=== PATIENT | female | born 1965 | race Caucasian/White ===

== ENCOUNTER 2021-08-11 00:09 | Emergency (ER) | payer BC, OTHER, SELFPAY ==
--- NOTE | 2021-08-11 00:10 | PC.NURSE ---
NO NEED FOR VISUAL ACUITY PER DR QUEZADA.
[2021-08-11 00:20] VITALS: BP 176/78; PULSE 56; RESP 18; TEMP 36.8; O2SAT 99; BMI 25.3
[2021-08-11] MEDS: Tetracaine HCl/PF 0.5% Oph Sol 4 ML DROPS 3 DROP EYE-RIGHT (00:29)
[2021-08-11] MEDS: Fluorescein Sodium STRIP 1 STRIP EYE-RIGHT (00:30)
--- NOTE | 2021-08-11 00:36 | ED.EYEPROB ---
HPI - Eye Problem General Chief complaint: Eye Problems Stated complaint: eye pain Time Seen by Provider: 08/11/21 00:22 Source: patient Mode of arrival: ambulatory Limitations: no limitations History of Present Illness HPI Narrative: She poked herself by cardboard at work in 2 right eye complaining of blurred vision with watery eyes no loss of vision no scotomas no loss of visual field no other injuries Related Data Previous Rx's Medication Instructions Recorded ketorolac 0.5 % eye drops (Acular) 2 drp OPHTHALMIC-RIGHT Q6-8H PRN 08/11/21 #3 ml tobramycin 0.3 % eye drops 1 drp OPHTHALMIC-RIGHT Q4H #5 ml 08/11/21 Allergies Allergy/AdvReac Type Severity Reaction Status Date / Time No Known Allergies Allergy Verified 08/11/21 00:28 Review of Systems Review of Systems: Yes all other systems are reviewed and are negative Eyes: Eyes: Reports photophobia PMFSH Past Medical History Medical History No known health problems Social History Social History Advance Directives: No Advance Directives Information Provided: No Patient : No Physical Exam Vital Signs: Vital Signs: Last Vital Signs Temp 98.2 F 08/11/21 00:20 Pulse 56 08/11/21 00:20 Resp 18 08/11/21 00:20 BP 176/78 H 08/11/21 00:20 Pulse Ox 99 08/11/21 00:20 Body Mass Index 25.3 Const: General: comfortable and no acute distress HENMT: Head: Yes normocephalic and Yes atraumatic Eyes: Periorbital: periorbital findings normal Eyelids: Yes eyelids normal Conjunctivae: conjunctivae normal Sclerae: sclerae normal Corneas: fluorescein used Pupils: Equal, round and reactive pupils present EOM: EOMs intact bilaterally Direct Ophthalmoscopy: fundi normal bilaterally, anterior chamber normal and photophobia Eyes/upper lids images: 1. Superficial abrasion, anterior chamber normal posterior chamber normal fundus negative Resp: Effort & Inspection: normal respiratory effort Neuro: Cranial nerves: Yes Equal, round and reactive pupils present Discharge Plan Discharge Clinical Impression: Corneal abrasion Qualifiers: Encounter type: initial encounter Laterality: right Qualified Code(s): S05.01XA - Injury of conjunctiva and corneal abrasion without foreign body, right eye, initial encounter Patient Disposition: Home, Self-Care Instructions: Corneal Abrasion (ED) Additional Instructions: Care as advised Use antibiotic eyedrop every 4-6 hours until heals complete Prescriptions: New ketorolac [Acular] 0.5 % drops 2 drp ophthalmic-Right Q6-8H PRN (Reason: pain) Qty: 3 RF: 0 tobramycin 0.3 % drops 1 drp ophthalmic-Right Q4H Qty: 5 RF: 0
[2021-08-11] MEDS: Tobramycin Sulfate 0.3% Sol Op 5 ML BTL 2 DROP EYE-RIGHT (00:41)
== END 2021-08-11 00:51 | disposition home or self-care (01) ==
PROVIDERS: Emergency Provider Internal Medicine; PCP Nurse Practitioner Family
DX: S05.01XA Injury of conjunctiva and corneal abrasion without foreign body, right eye, initial encounter (principal); H57.11 Ocular pain, right eye; W26.9XXA Contact with unspecified sharp object(s), initial encounter; Y93.9 Activity, unspecified; Y92.9 Unspecified place or not applicable; Y99.0 Civilian activity done for income or pay; Z79.899 Other long term (current) drug therapy
CPT/HCPCS: 99283

== ENCOUNTER 2022-03-25 07:52 | Outpatient (REF) | payer BC, SELFPAY ==
--- NOTE | ~2022-03-25 | XR_ITS ---
EXAMINATION: XR WRIST, LEFT CLINICAL INFORMATION: M25.532 - Pain in left wrist COMPARISON: None TECHNIQUE: Left wrist is imaged in 3 views. FINDINGS: There is a comminuted fracture with intra-articular extension involving the distal radius there is slight radial displacement distal fragments. There is also nondisplaced fracture base ulnar styloid. Ulnar variance is within neutral. The carpal bones appear intact. No dislocation or destructive process. XR/XR wrist LT min 3V IMPRESSION: -Comminuted intra-articular fracture distal radius. -Nondisplaced fracture base ulnar styloid.
== END 2022-03-25 07:53 | disposition home or self-care (01) ==
LOC: HO.HOSX 07:52
PROVIDERS: Visit Provider Physician Assistant
DX: M25.532 Pain in left wrist (principal)
CPT/HCPCS: 73110

== ENCOUNTER 2022-03-28 08:27 | Day surgery (SDC) | payer BC, SELFPAY ==
--- NOTE | 2022-03-27 09:25 | HO.ANESPROP2 ---
Documented by User: Veda Cole NP 03/27/22 09:25 HPI - Anesthesia Eval Consult details Narrative: 56yo F for Left Radius Distal Fracture ORIF PMFSH Active Problems Active Problems: All Active Problems (Updated 03/25/22 @ 17:56 by Dada Connelly PA-C) Nondisplaced fracture of left ulna styloid process, initial encounter for closed fracture (Acute) Distal radius fracture, left (Acute) Past Medical History Medical History No known health problems Social History Social History (Updated 03/25/22 @ 09:47 by AMARI Robert) Patient Tobacco Use Status: Never used Tobacco Use of substances other than those prescribed or required for medical reasons: No Are you DNR?: No Advance Directives: No Advance Directives Information Provided: Yes Current occupation: [employer] hand Meds Allergies Allergy/AdvReac Type Severity Reaction Status Date / Time No Known Allergies Allergy Verified 08/11/21 00:28 Home Medications Medication Instructions Recorded Confirmed Last Taken Type hydrocodone 5 mg-acetaminophen 325 1 tab PO TID PRN 03/25/22 Unknown History mg tablet naproxen 500 mg tablet 500 mg PO BID 03/25/22 Unknown History Exam Exam Date and Time: March 27, [id number] Assessment and Plan Assessment Anesthesia Assessment: Chart Reviewed Documented by User: Matthew Gonzalez MD 03/28/22 12:41 PMFSH Past Medical History Medical History No known health problems Family History Family history of problems with anesthesia: No Surgical History History of Problems with Anesthesia: No Social History Social History (Updated 03/25/22 @ 09:47 by AMARI Robert) Patient Tobacco Use Status: Never used Tobacco Use of substances other than those prescribed or required for medical reasons: No Are you DNR?: No Advance Directives: No Advance Directives Information Provided: Yes Current occupation: [employer] Meds Allergies Allergy/AdvReac Type Severity Reaction Status Date / Time No Known Allergies Allergy Verified 08/11/21 00:28 Home Medications Medication Instructions Recorded Confirmed Last Taken Type hydrocodone 5 mg-acetaminophen 325 1 tab PO TID PRN 03/25/22 Unknown History mg tablet naproxen 500 mg tablet 500 mg PO BID 03/25/22 Unknown History Exam Airway Mallampati Class: II TM Dist: >3cm Neck ROM: Full Denture: Upper Loose/Missing/Broken Teeth: Yes Assessment and Plan Assessment Anesthesia Assessment: Anesthesia Plan Discussed Final Anesthetic Review Family History of Problems with Anesthesia: No History of Problems with Anesthesia: No NPO: Yes ASA Class: I Final Preanesthetic Review: No Changes in Pt Med Stat, Meds/Allgs Chart Reviewed, Consent Obtained/Reviewed and Anes Risks/Benef Reviewed Patient Risk: Low Procedure Risk: Low Anesthetic Plan Anesthetic Plan: GA and Regional Block Disposition: Standard PACU
[2022-03-28] VITALS (7 sets, daily range): BP systolic 114–153; BP diastolic 62–85; PULSE 65–75; RESP 14–18; TEMP 35.8–36.5; O2SAT 95–98; BMI 25.0
--- NOTE | ~2022-03-28 | FL_ITS ---
EXAMINATION: XR FLUOROSCOPY WITH IMAGES CLINICAL INFORMATION: Open reduction and internal fixation of left distal radial fracture. COMPARISON: 03/25/2022 TECHNIQUE: FLUOROSCOPY PERFORMED BY: Yuliana Shen . FLUOROSCOPY TIME: 30.04 seconds. DAP: 0.0546 Gy-cm2 FLUOROSCOPIC IMAGES: 3 FINDINGS: Provided C-arm images demonstrate placement of sideplate and screws for fixation of distal left radial fracture. FL/FL guidance in OR IMPRESSION: Intraoperative fluoroscopy for orthopedic procedure.
[2022-03-28] MEDS: Lactated Ringers 1,000 ML 100 ML IVCONT (08:56)
--- NOTE | 2022-03-28 09:18 | P.OP_ITS ---
Operative Note Operative Note Date of Service: 03/28/22 Narrative: Operative Note Narrative: Preop diagnosis: 1. Left Distal radius fracture , comminuted intra-articular volar Bean variant Postop diagnosis: Same Procedure: 1. Distal radius fracture open reduction internal fixation, Three-part intra- articular Surgeon: Yuliana Shen MD Anesthesia: General anesthesia plus regional block Findings: left volar Bean intra-articular distal radius fracture Implants: A 5 hole Accu Med volar locking plate, with 5x 2.3 mm locking pegs/screws, and 4x 3.5 mm cortical screws Tourniquet time: 60 minutes EBL: 5.0 ml Specimen: None Drains: None Complications: None Disposition: Brought to the recovery room in stable condition Plan: Follow-up in 10-14 days for wound check, suture removal and postop radiographs The patient will be placed in either a short-arm cast or a volar wrist splint. Encouraged no lifting of anything heavier than a cell phone. Please encourage active and passive range of motion of the digits. Follow-up at 4-5 weeks postop for repeat radiographs. Indications: The patient is a 56 year old woman with a left volar Bean variant distal radius fracture . The risks and benefits of operative treatment, including but not limited to risk of damage to blood vessels, nerves, tendons, infection, recurrence, persistent pain or numbness, incomplete resolution of preoperative symptoms, or need for further surgery were discussed with the patient and they wished to proceed with surgery. Procedure: Once consent was obtained patient was brought back to the operating suite and placed in the operating table in a supine position. A regional block was performed by the anesthesia team. Perioperative antibiotics and anesthesia was administered by the anesthesia team. A tourniquet was applied to the proximal aspect of the left upper extremity and the limb was prepped and draped in a standard surgical fashion. The limb was elevated exsanguinated with Esmarch bandage and the tourniquet inflated to 250 mm of mercury for a total tourniquet time of 60 minutes. The FluoroScan was used throughout the case to assess our reduction, and facilitate implant placement. I made an 8 cm longitudinal incision over the distal aspect of the flexor carpi radialis tendon. The incision was made through the skin to the subcutaneous tissue using a 15. Blade. Then carefully dissected down to flexor carpi radialis tendon she tenotomy scissors. The FCR tendon sheath was then incised longitudinally using tenotomy scissors under direct visualization. The FCR tendon was then retracted ulnarly. I then made a longitudinal incision in the volar forearm fascia through the floor of FCR tendon sheath using tenotomy scissors under direct visualization. I identified the interval between the radial artery and the flexor tendons. This interval was developed further with my index finger, releasing some of the muscular fibers of the flexor pollicis longus. A dull weatlander retractor was then placed. I then created an ulnarly based flap of the pronator quadratus by releasing the radial and distal edges using a 15. Blade. A Watkins elevator was used to elevate the pronator quadratus from the volar surface of the distal radius. This then revealed to us our distal radius fracture. An open reduction was then performed on our distal radius fracture. it is an intra-articular volar Bean fracture with comminution of the volar cortex. I felt that a 3 hole plate was not going to be long enough, as the most distal the hole in the longitudinal limb of the plate would be passing through our fracture. We therefore used a standard 5 hole locking plate. After our open reduction of the comminuted pieces in the volar aspect of the fracture I then placed the 5 hole volar locking plate on the volar surface of the radius an use the plate to help buttress and reduce the articular surface to its more distal and dorsal anatomic position. This was a fixed 1st with a 3.5 mm cortical screw through the oval hole in the plate. This was done by drilling bicortically with a 2.8 mm drill bit, then securing the plate to the shaft the radius using the 3.5 mm cortical screw. Once satisfied with the position of this plate and our reduction , I then placed 5 2.3 mm locking screws/pegs distally. This was done by 1st drilling with a 1.8 mm drill bit, measuring with a depth gauge and placing the appropriate length screw or PEG. I then placed 3 more 3.5 mm cortical Screws proximally, in a similar fashion as to the original 3.5 mm cortical screw. Final radiographs were then obtained. The DRUJ was assessed and found to be stable on exam. I was satisfied with our reduction and placement of all implants. At this point the wound was irrigated with normal saline. The pronator quadratus was reduced back over the volar locking plate using some 3-0 Vicryl suture material. The tourniquet was then deflated and hemostasis was obtained with a brief period of local pressure and bipolar monopolar electrocautery. The subcutaneous layer was then reapproximated using some 4-0 Vicryl suture, and the skin edges were reapproximated using some 5 0 Prolene suture. The wound was then infiltrated with some 1% lidocaine with epinephrine postop pain control. A sterile dressing and a short dorsal splint allowing for active flexion and extension of the digits was applied. The patient appears to have tolerated the procedure well and with no complications. All digits were well vascularized conclusion of the case.
--- NOTE | 2022-03-28 11:05 | MHC.SHP ---
Pre-Procedural Eval Section A Date of Service: 03/28/22 The patient is an INPATIENT: No Changes since office visit: No Cold of Flu in the past 2 weeks, No New Medical Problems, No Changes in Medication and No Patient answered all questions The History & Physical has been completed within 30 days and I have reviewed it.: Yes Section B Chief Complaint: fx radius Allergies: Allergies Allergy/AdvReac Type Severity Reaction Status Date / Time No Known Allergies Allergy Verified 08/11/21 00:28 Plan I have reviewed the history and physical and performed a pertinent physical examination on my patient. No changes have occurred unless specified.
== END 2022-03-28 14:30 | disposition home or self-care (01) ==
PROVIDERS: PCP Nurse Practitioner Family; Visit Provider Orthopaedic Surgery
PROC: (CPT 25609; principal; 2022-03-28 10:20)
DX: S52.572A Other intraarticular fracture of lower end of left radius, initial encounter for closed fracture (principal); S52.615A Nondisplaced fracture of left ulna styloid process, initial encounter for closed fracture; V19.3XXA Pedal cyclist (driver) (passenger) injured in unspecified nontraffic accident, initial encounter; Y93.55 Activity, bike riding; Y92.9 Unspecified place or not applicable; Y99.8 Other external cause status
CPT/HCPCS: 25609; C1713; C1769; J0690; J1100; J2250; J2405; J2550; J2795; J3010

== ENCOUNTER 2022-04-10 08:14 | Outpatient (REF) | payer BC, SELFPAY ==
--- NOTE | ~2022-04-10 | XR_ITS ---
EXAMINATION: XR WRIST, LEFT CLINICAL INFORMATION: Fracture. COMPARISON: Previous x-ray March 2022 TECHNIQUE: PA, lateral, and oblique views of the left wrist. FINDINGS: There is a superior hardware with plate and screws in the left distal radius that appears unchanged. There is a comminuted fracture of the left distal radius with minimal dorsal displacement of fracture fragment. There is a nondisplaced ulnar styloid fracture. There is overlying soft tissue swelling. XR/XR wrist LT min 3V IMPRESSION: ORIF of left distal radius fracture.
== END 2022-04-10 08:15 | disposition home or self-care (01) ==
LOC: HO.HOSX 08:14
PROVIDERS: Visit Provider Orthopaedic Surgery
DX: M25.532 Pain in left wrist (principal)
CPT/HCPCS: 73110

== ENCOUNTER 2022-05-01 09:10 | Outpatient (REF) | payer BC, SELFPAY ==
--- NOTE | ~2022-05-01 | XR_ITS ---
EXAMINATION: XR WRIST, LEFT CLINICAL INFORMATION: Pain left wrist. COMPARISON: Left wrist 04/10/2022. TECHNIQUE: PA, lateral, and oblique views of the left wrist. FINDINGS: There is a volar plate and screws stabilizing distal radial fracture in alignment. There is nondisplaced ulnar styloid process fracture noted. Minimal soft tissue swelling is seen. XR/XR wrist LT min 3V IMPRESSION: Stabilized distal radial fracture with ventral plate and screws in alignment. No change in the nondisplaced ulnar styloid process fracture compared to 04/10/2022..
== END 2022-05-01 09:11 | disposition home or self-care (01) ==
LOC: HO.HOSX 09:10
PROVIDERS: Visit Provider Orthopaedic Surgery
DX: M25.532 Pain in left wrist (principal); S52.615A Nondisplaced fracture of left ulna styloid process, initial encounter for closed fracture; S52.502A Unspecified fracture of the lower end of left radius, initial encounter for closed fracture; X58.XXXA Exposure to other specified factors, initial encounter; Y93.9 Activity, unspecified; Y92.9 Unspecified place or not applicable; Y99.8 Other external cause status
CPT/HCPCS: 73110

== ENCOUNTER 2022-05-29 10:00 | Outpatient (RCR) | payer BC, SELFPAY ==
--- NOTE | 2022-05-14 13:46 | MHC.OT.OEV ---
[address] [phone] F: [phone] Occupational Therapy Evaluation Diagnosis: L wrist s/p ORIF for DR fracture Date of Onset: Date of Surgery: 05/01/22 Attending Provider: Yuliana Shen Prescribed Treatment: OT eval and treat MD Follow Up Appointment: History of Current Condition: Pt reports left wrist injury due to a fall. Surgical repair by Dr Shen. Pt is expected to RTW next week without restrictions. 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 Cycling occassionally Living Situation, Family and/or Social Support: Current Level of Function and Occupation Self Care, Employment, Leisure: Mild difficulty due to low strength with most homemaking tasks. Moderate difficulty with heavy work with her left dominant hand. Moderate difficulty with cutting hard foods Avoiding cycling Pt to RTW next week without restrictions Sleep: NA Driving: WNL Vision: Balance: Pain Assessment Pain Score: 4 Pain Scale Used: Numeric (0 - 10) Pain Location and Description: 4 left volar distal radius achy, burning occassionally Aggravating Factors: Lifting , gripping Alleviating Factors: Skin and Soft Tissue Assessment Skin and Soft Tissue: Contracture Comments: Long thin pink surgical scar, mod adherent Wrist stiff Nerve assessment Ulnar Nerve: WNL Median Nerve: WNL Radial Nerve: WNL Comments: MMT Sensory Assessment Temperature: Light Touch: WNL Proprioception: Vibration: Comments: Edema Assessment Upper Extremity: WNL Lower Extremity: Comments: Dexterity Assessment Dexterity: WNL Comments: Special Tests Comments: AROM(PROM) Strength Cervical Cervical Flexion: Cervical Extension: Cervical Lateral Flexion: Cervical Rotation: Comments: Shoulder Flexion: Extension: Abduction: Internal Rotation: External Rotation: Comments: Flexion: Extension: Abduction: Internal Rotation: External Rotation: Comments: Elbow Flexion: Extension: Pronation: Supination: Comments: Flexion: Extension: Pronation: Supination: Comments: Wrist Flexion: R 60 L 30 Extension: R 65 L 45 Ulnar Deviation: R 15 L 10 Radial Deviation: R 30 L 10 Comments: Flexion: Extension: Ulnar Deviation: Radial Deviation: Comments: Thumb Thumb CMC Flexion: Thumb MCP Flexion: Thumb IP Flexion: Radial Abduction: Palmar Abduction: Shiloh (Kapandji 0-10): Comments: WNl Digits Index MCP: PIP: DIP: Long MCP: PIP: DIP: Ring MCP: PIP: DIP: Small MCP: PIP: DIP: Comments: WNL Gross Grasp: R 50 lb L 30 lb Lateral Pinch: Two-Point Pinch: Three-Jaw Vishnu: Comments: Patient Education Primary Language: Serbian Dry Cleaner Helper Required: No Current Knowledge: Minimal, needs reinforcement Teaching Method: Demonstration Handouts Verbal Education Needs Identified on Evaluation: Exercise How did patient/family demonstrate learning? Patient demonstrates Patient verbalizes Barriers to Learning: None Readiness for Learning: Accepting Who was educated? 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 and would benefit from a short course of OT to maximize ROM and strength STG Duration: 3 wks Short Term Goals: Demo indep with HEP and scar management Inc left wrist ext to 60 deg Inc left wrist flex to 50 deg Left emt basic to 40 lb Dec wrist pain to occasional Quick DASH score to <15 pts LTG Duration: 3 wks Associate Java Developer Goals: Same as above Frequency and Duration: The patient will be seen 1x wk x 3 wks Treatment Plan: Therapeutic Exercise Therapeutic Activity Home Exercise Program Patient Education Electronically Signed By: Angélica Orona OT CHT CLT Reviewed/agree with student documentation: N/A Therapist: Please sign and return to therapist, Thank you for your referral.
--- NOTE | 2022-06-27 11:11 | MHC.OT.DC ---
[address] [phone] F: [phone] Occupational Therapy Discharge Note Provider: Yuliana Shen Diagnosis: L wrist s/p ORIF for DR fracture Date of Surgery: 05/01/22 Date of Evaluation: 05/14/22 Date of Discharge: 06/27/22 Treatments to Date: 1 Cancellations to Date: No Shows to Date: Discharge Status: Achieved Goals Improved Function Independent with HEP Discharge Summary: Good inc in ROM and activity tolerance with Pt return to work this week. She reports only mild difficulty with daily activities due to low left hand and wrist sthrength. She is stretching and using her 3 and 5 pound free wts at home. She expresses confidence in continuing to improve with her HEP Electronically Signed By: Angélica Orona OT CHT CLT Reviewed/agree with student documentation: N/A Therapist: Please Sign and return to therapist, thank you for your referral.
== END 2022-06-27 11:11 | disposition home or self-care (01) ==
LOC: HO.OT 10:00
PROVIDERS: Visit Provider Orthopaedic Surgery
DX: S52.615A Nondisplaced fracture of left ulna styloid process, initial encounter for closed fracture (principal); S52.502A Unspecified fracture of the lower end of left radius, initial encounter for closed fracture
CPT/HCPCS: 97110; 97165

== ENCOUNTER 2023-11-03 06:14 | Outpatient (REF) | payer BC, SELFPAY ==
--- NOTE | ~2023-11-03 | XR_ITS ---
EXAMINATION: XR SHOULDER, LEFT CLINICAL INFORMATION: Left shoulder pain. COMPARISON: Left shoulder radiographs of 08/09/2014. TECHNIQUE: 3 views of the left shoulder. FINDINGS: Mild degenerative changes in the acromioclavicular joint with joint space narrowing and hypertrophic change. Mild changes with hypertrophic change along the glenoid. Degenerative changes in the imaged upper thoracic spine. XR/XR shoulder LT min 2V IMPRESSION: Mild degenerative changes in the acromioclavicular and glenohumeral joints.
== END 2023-11-03 06:15 | disposition home or self-care (01) ==
LOC: HO.HOSX 06:14
PROVIDERS: Visit Provider Physician Assistant
DX: M75.22 Bicipital tendinitis, left shoulder (principal); M75.102 Unspecified rotator cuff tear or rupture of left shoulder, not specified as traumatic
CPT/HCPCS: 20610; 73030; J1040

== ENCOUNTER 2023-11-03 08:04 | Outpatient (AMB) | payer BC, SELFPAY ==
--- NOTE | 2023-11-03 08:16 | MHC.OFFVIS ---
Intake Intake Visit Reasons: Newprob- LT Shoulder pain Intake Note: Gisel is a 58 year old right hand dominant female who presents today for a evaluation for her left shoulder pain. Patient reports ongoing pain for a couple weeks. She states that her pain is on the anterior aspect of the shoulder and it radiates up her neck and down to her elbow. Patient tried taking alive to give her some relief. Allergies No Known Allergies Allergy (Verified 11/03/23 08:18) HPI Newprob- LT Shoulder pain HPI Details 58-year-old right hand dominant female who presents in the office today for an evaluation of left shoulder pain. The patient reports ongoing pain for a few weeks. She claims her pain is on the anterior aspect of the left shoulder and claims it radiates up to her neck and down to her elbow. She confirms the use of Aleve which gives her some relief. [facility] Medical History (Updated 11/03/23 @ 08:31 by Keshia Barrientos PA-C) No known health problems Surgical History (Updated 11/03/23 @ 08:20 by Wen Bond) History of surgery on right wrist Social History (Updated 11/03/23 @ 08:19 by Wen Bond) Alcohol intake: current Patient Tobacco Use Status: Never used Tobacco Current occupational status: employed Current occupation: [email or web address] hand Review of Systems Const All systems reviewed & are unremarkable except as noted in HPI and below Physical Exam Const General: cooperative, healthy appearing and no acute distress Resp Effort & Inspection: normal respiratory effort and able to speak in complete sentences Cardio Rate: regular rate Peripheral pulses: Peripheral pulses 2+ throughout GI Palpation (GI): Soft to palpation Skin Lesions: no lesions Rashes: no rashes Extrem Other: Left shoulder: Full shoulder ROM in all planes but is painful at the last 20 degrees of motion. Full external rotation without pain. Pain with cross-body reach. 3/5 strength with empty can. NVI. Assessment & Plan Assessment & Plan (1) Biceps tendinitis of left shoulder: Code(s): M75.22 - Bicipital tendinitis, left shoulder (2) Painful arc syndrome of left shoulder: Code(s): M75.102 - Unspecified rotator cuff tear or rupture of left shoulder, not specified as traumatic Plan Ms. Christine is a 58-year-old right hand dominant female who presents in the office today for an evaluation of left shoulder pain. The patient reports ongoing pain for a few weeks. She claims her pain is on the anterior aspect of the left shoulder and claims it radiates up to her neck and down to her elbow. She confirms the use of Aleve which gives her some relief. The patient was offered a cortisone injection in the left shoulder with 80 mg of DepoMedrol. The patient was explained the risk, benefits, and alternatives to receiving this injection. After receiving consent for the injection, the patient had the procedure done while in office today. The patient tolerated the procedure well with no complications. A referral was place for the patient to attend physical therapy, which she has agreed to attend. Follow up will be in 6 weeks,, or sooner if needed. X-rays of the left shoulder which were obtained while in the office today and were reviewed by me, Keshia Barrientos PA-C, revealed no acute fracture of dislocation. Orders: Orders PT Evaluation and Treatment Today M75.102 - Unspecified rotator cuff tear or rupture of left shoulder, not specified as traumatic, M75.22 - Bicipital tendinitis, left shoulder XR shoulder LT min 2V Today M25.519 - Pain in unspecified shoulder Patient Instructions: Scribed for Keshia Barrientos PA-C by Medina Verduzco medical lab specialist, on 11/03/2023 at 8:00 am, EST. Coding Level of Care Code Est Pt Level 4 (58610) Diagnoses Biceps tendinitis of left shoulder M75.22 Painful arc syndrome of left shoulder M75.102
== END 2023-11-03 08:58 | disposition home or self-care (01) ==
PROVIDERS: PCP Nurse Practitioner Family; Visit Provider Physician Assistant
DX: M75.22 Bicipital tendinitis, left shoulder (principal); M75.102 Unspecified rotator cuff tear or rupture of left shoulder, not specified as traumatic
CPT/HCPCS: 20610; 99214

== ENCOUNTER 2023-12-01 09:00 | Outpatient (RCR) | payer BC, SELFPAY ==
--- NOTE | 2023-11-11 11:07 | MHC.PT.EP ---
[facility] [place] Office [place] Office [address] [phone] F: [phone] F: [phone] F: [phone] F: [phone] Physical Therapy Plan of Care Date of Evaluation: 11/11/23 Date of Surgery: Diagnosis: L shoulder pain Assessment: Pt is a 58yo female who presents to PT for treatment of L shoulder pain, with signs of impingement and tendinitis. Skilled PT indicated to teach pt management techniques at home, daily stretching routine, promote periscap and RTC strength, normalize scapulohumeral rhythm and body mechanics to avoid re-injury. Pt in agreement with POC and is motivated to participate. Frequency and Duration: The patient will be seen 2x/week, x 4 weeks Short Term Goals: 1. In 2 weeks, patient will be able to maintain SRD during 10 reps shoulder exercise. 2. In 2 weeks, patient will be I with phase 1 exercises and stretches independently. 3. In 2 weeks, patient will be able to list L arm into scaption to 60 degrees without hiking or elevation of shoulder blade. Wink Cutter Operator Goals: 1. In 4 weeks, patient will demonstrate 5/5 L shoulder IR/ER and periscap all planes. 2. In 4 weeks, patient will be able to lift up 8# item with L UE from floor to counter height shelf without increased pain. 3. In 4 weeks, improve SPADI score by 20 points, indicating improved function and decreased pain. Treatment Plan: Modalities to reduce pain, spasms and effusion. Manual therapy to restore motion and function. Therapeutic exercise to improve strength and flexibility. Neuromuscular re-education for posture and balance. Therapeutic activities to return to functional activities of daily living. Electronically signed by: Maribel Rebollar PT, DPT Please sign and return to therapist. Thank you for your referral.
--- NOTE | 2024-05-05 12:12 | MHC.PT.DC ---
[facility] [place] Office [place] Office [place] Office [address] [phone] F: [phone] F: [phone] F: [phone] F: [phone] Physical Therapy Discharge Report Diagnosis: L shoulder pain Date of Surgery: Date of Evaluation: 11/11/23 Date of Discharge: 12/01/23 Treatments to Date: 6 Cancellations to Date: No Shows to Date: Discharge Status: Achieved Goals Improved Function Independent with HEP Discharge Summary: Pt was referred to skilled PT for L shoulder pain. Pt fully participated in PT and HEP. Pt has met LTG and is able to lift 8# weight from floor and lift to counter height with good body mechanics, keeping weight close to body. L shoulder IR/ER with good scapular stability noted during side lying and prone exercise. Pt in agreement with D/C to HEP at this time. Thank you for this referral. Electronically signed by: Maribel Rebollar PT, DPT Please sign and return to therapist. Thank you for your referral.
== END 2024-05-05 12:12 | disposition home or self-care (01) ==
LOC: HO.PT 09:00
PROVIDERS: PCP Nurse Practitioner Family; Visit Provider Physician Assistant
DX: M75.102 Unspecified rotator cuff tear or rupture of left shoulder, not specified as traumatic (principal); M75.22 Bicipital tendinitis, left shoulder
CPT/HCPCS: 97110; 97140; 97161

== ENCOUNTER 2023-12-09 08:07 | Outpatient (AMB) | payer BC, SELFPAY ==
--- NOTE | 2023-12-09 08:10 | MHC.OFFVIS ---
Intake Intake Visit Reasons: ov- left bicep tendinitis, last inj 11/03/23 Intake Note: Gisel is a 58 year old right hand dominant female who presents today for a follow up of her left bicep tendinitis, last inj 11/03/23. Patient reports she is doing much better, however when she is over working her left arm she can feel a bit sore. She states that PT went well and she was given at home exercises and she sees improvements. Allergies No Known Allergies Allergy (Verified 12/09/23 08:16) HPI ov- left bicep tendinitis, last inj 11/03/23 HPI Details 58-year-old right hand dominant female who presents in the office today for a follow up of left shoulder pain. I last saw the patient in the office on 11/03/2023 when she received a cortisone injection in the shoulder. A referral to physical therapy was also placed at this time. While in the office today the patient reports she is doing much better, however she is over working her left arm and states it feels a bit sore. She confirms attending physical therapy and states it went well. She was given a home exercise program and she has seen improvement. [facility] Medical History (Updated 11/03/23 @ 08:31 by Keshia Barrientos PA-C) No known health problems Surgical History (Updated 11/03/23 @ 08:20 by Wen Bond) History of surgery on right wrist Social History (Updated 11/03/23 @ 08:19 by Wen Bond) Alcohol intake: current Patient Tobacco Use Status: Never used Tobacco Current occupational status: employed Current occupation: [employer]- rt hand Review of Systems Const All systems reviewed & are unremarkable except as noted in HPI and below Physical Exam Const General: cooperative, healthy appearing and no acute distress Resp Effort & Inspection: normal respiratory effort and able to speak in complete sentences Cardio Rate: regular rate Peripheral pulses: Peripheral pulses 2+ throughout GI Palpation (GI): Soft to palpation Skin Lesions: no lesions Rashes: no rashes Extrem Other: Left shoulder: Normal to inspection. No ecchymosis, erythema, or edema. Full shoulder ROM in all planes. Negative cross-body reach. Negative empty can. Negative drop arm. NVI. Assessment & Plan Assessment & Plan (1) Biceps tendinitis of left shoulder: Code(s): M75.22 - Bicipital tendinitis, left shoulder (2) Painful arc syndrome of left shoulder: Code(s): M75.102 - Unspecified rotator cuff tear or rupture of left shoulder, not specified as traumatic Plan Ms. Christine is a 58-year-old right hand dominant female who presents in the office today for a follow up of left shoulder pain. I last saw the patient in the office on 11/03/2023 when she received a cortisone injection in the shoulder. A referral to physical therapy was also placed at this time. While in the office today the patient reports she is doing much better, however she is over working her left arm and states it feels a bit sore. She confirms attending physical therapy and states it went well. She was given a home exercise program and she has seen improvement. The patient reports occasionally she has pain between her shoulder blades, which is more muscular in nature. I did offer an appointment with Physiatry for further evaluation and treatment with possible trigger point injections. At this time the patient would like to defer. I have provided her with a card for Dr. Phipps. Follow up will be PRN, or sooner if needed. Patient Instructions: Scribed by Medina Verduzco medical billing clerk, for Keshia Barrientos PA-C on 12/09/2023 at 8:10 am, EST. Coding Level of Care Code Est Pt Level 3 (79944) Diagnoses Biceps tendinitis of left shoulder M75.22 Painful arc syndrome of left shoulder M75.102
== END 2023-12-09 08:21 | disposition home or self-care (01) ==
PROVIDERS: PCP Nurse Practitioner Family; Visit Provider Physician Assistant
DX: M75.22 Bicipital tendinitis, left shoulder (principal); M75.102 Unspecified rotator cuff tear or rupture of left shoulder, not specified as traumatic
CPT/HCPCS: 99213

== ENCOUNTER → 2023-12-09 08:07 | Outpatient (BNVA) | payer BC, SELFPAY | PROVIDERS: PCP Nurse Practitioner Family; Visit Provider Physician Assistant ==

== ENCOUNTER 2025-02-23 07:25 | Day surgery (SDC) | payer BC, SELFPAY ==
--- OUTSIDE RECORDS SUMMARY | 2025-01-28 14:23 | XMS_ITS ---
Author Name [facility] Organization Unknown Care Team Organization Name Specialty Phone Email Start Date End [facility] 08/20/2024
--- OUTSIDE RECORDS SUMMARY | 2025-01-28 14:24 | XMS_ITS | Data Portability ---
Author Organization [facility], , [facility] Address [address] [place] [address] Care Team Providers Care Steward/Stewardess Lounge Name Role Phone KELLI DUGGAN Primary Care Provider [phone] Assessment Encounter Date Assessment Date Assessment LastModified by Organization Details LastModified Time 07/10/2023 07/10/2023 Metatarsalgia left foot, hallux abductovalgus deformity, pes planovalgus deformity [email or web address] Not available 07/08/2023 14:18:36 08/06/2023 08/06/2023 Metatarsalgia left foot, hallux abductovalgus deformity, pes planovalgus deformity [email or web address] Not available 08/06/2023 11:15:54 01/20/2025 01/20/2025 Wellness Visit- Routine wellness visit to assess overall health and preventive care. Discussed vision and dental care, menopause history, and recent mammography and Pap smear results. Mammography in June 2024 was normal. Pap smear in 2021 was normal, with the next one due in 2026. Colonoscopy scheduled for February 23, 2025, with Dr. Anderson at [facility]. Reviewed social history, diet, exercise, and family history of osteoporosis, breast cancer, stroke, and hypertension. - Continue routine vision and dental care. - Declined pneumococcal and shingles vaccine - Wants to proceed with scheduled colonoscopy on February 23, 2025. - Continue regular mammography screenings as per schedule- order placed. - Continue Pap smear screenings as per schedule- 2026 Elevated blood pressure without formal hypertension diagnosis. Home readings slightly elevated. Discussed lifestyle modifications including diet and exercise. Encouraged salt reduction and weight loss. Provided education on hypertension management and the importance of protecting heart, kidneys, and eyes through lifestyle changes to avoid medication. Return in 3 months to discuss diet, BP control, and exercise. [email or web address] Not available 01/20/2025 15:47:21 Plan of Treatment Reminders Order Date Submit Date Provider Last Modified By Organization Details Last Modified Time Details Appointments Follow Up, 30 2024 08:00A M CHARMAINE DUGGAN NP Not available Not available Not available Mammog ever, Screen ing 2024 10:00A M [facility] Mammography Not available Not available Not available Lab None record ed. Referral physic al therap ist referr al 2022 023 [email or web address] [facility] Physical Therapy, [address], [place], [address], 07/27/2023 09:32:10 Procedures colono scopy proced ure (PROC) [email or web address] [place] [address] Gastroenterol ogy, [address] [place], [address], 01/21/2024 08:56:39 Surgeries None record ed. Imaging MAMMO, screen ing, tomosy nthesi s, bilate ral - 2nd Look Consul t/Diag Mammo/ US Breast /Guide d Asp/Br east Bx/Cli p Placem ent, as clinic [facility]. [address] (Imaging), [address], [place], [address], 01/21/2025 08:47:07 Medication Orders None record ed. Patient TargetsNo targets recorded. Patient Instructions Encounter Date Encounter Id Patient Instructions Last Modified By Organization Details Last Modified Time 07/10/2023 [id number] Patient to retur n in 3 weeks for orthotic evaluation. [email or web address] Not available 07/10/2023 13:49:12 08/06/2023 [id number] Patient to retur n in 6-8 weeks for orthotic evaluation. [email or web address] Not available 08/06/2023 11:18:06 01/14/2024 [id number] Monitor BP daily x 2 weeks and report recurring results greater than 130/80 via portal [email or web address] Not available 01/14/2024 12:12:20 01/20/2025 [id number] hypertension education [email or web address] Not available 01/20/2025 15:47:22 dash diet: care instructions [email or web address] Not available 01/20/2025 15:47:22 Reason for Referral Physical Therapist Referral for Shoulder pain Referring Physician: Kasia Dominguez, Family Medicine, Encounter Date: 07/25/2023 Results Created Date Observation Date Name Description Value Unit Range Abnormal Flag Note LastModifiedBy Organization Detail LastModifiedTime 06/30/2007/01/2023 SED RATE BY MODIF IED WESTE RGREN sed rate by modified westergren 22 mm/h < or = 30 normal Not Available [facility] [address], [address], 07/01/2023 04:42:40 06/30/20 23 07/01/2023 COMP. METAB OLIC PANEL glucose 104 mg/dL 70-100 high Not Available [address], [address], 07/01/2023 15:05:47 06/30/20 23 07/01/2023 COMP. METAB OLIC PANEL BUN 16 mg/dL 7-18 Not Available [address], [address], 07/01/2023 15:05:47 06/30/20 23 07/01/2023 COMP. METAB OLIC PANEL creatinine 0.9 mg/dL 0.8-1. 3 Not Available [address], [address], 07/01/2023 15:05:47 06/30/20 23 07/01/2023 COMP. METAB OLIC PANEL B/C 17.8 ratio Not Available [address], [address], 07/01/2023 15:05:47 06/30/20 23 07/01/2023 COMP. METAB OLIC PANEL GFR >=60ML /MIN mL/mi n normal >=60m L/min - Alejandra l or midly reduc ed <60mL /min- Decre ased kidne y funct ion <15mL /min - Kidne y failu re [facility] calcu lates estim ated Glome rular Filtr ation Rate (eGFR ) using the Chron ic Kidne y Disea se Epide miolo gy Colla borat ion (CKD- EPI) Equat ion (Josh r et. al 2020) as recom jeison d by the Natio nal Kidne y Found ation . eGFR is based on age, serum creat inine , and sex. CKD-E PI does not calcu late eGFR by race, does not apply to child hank (age <18 years ), and shoul d not be used in pregn anthony. Not Available [address], [address], 07/01/2023 15:05:47 06/30/20 23 07/01/2023 COMP. METAB OLIC PANEL sodium 143 mmol/ L 136-14 5 Not Available [address], [address], 07/01/2023 15:05:47 06/30/20 23 07/01/2023 COMP. METAB OLIC PANEL potassium 5.0 mmol/ L 3.5-5. 1 Not Available [address], [address], 07/01/2023 15:05:47 06/30/20 23 07/01/2023 COMP. METAB OLIC PANEL chloride 105 mmol/ L 96-107 Not Available [address], [address], 07/01/2023 15:05:47 06/30/20 23 07/01/2023 COMP. METAB OLIC PANEL anion gap 11.2 5.0-15 .0 Not Available [address], [address], 07/01/2023 15:05:47 06/30/20 23 07/01/2023 COMP. METAB OLIC PANEL CO2 27 mmol/ L 21-32 Not Available [address] [place], [address], 07/01/2023 15:05:47 06/30/20 23 07/01/2023 COMP. METAB OLIC PANEL calcium 9.6 mg/dL 8.5-10 .3 Not Available [address], [address], 07/01/2023 15:05:47 06/30/20 23 07/01/2023 COMP. METAB OLIC PANEL total protein 7.6 g/dL 6.4-8. 2 Not Available [address], [address], 07/01/2023 15:05:47 06/30/20 23 07/01/2023 COMP. METAB OLIC PANEL albumin 4.1 g/dL 3.4-5. 0 Not Available [address], [address], 07/01/2023 15:05:47 06/30/20 23 07/01/2023 COMP. METAB OLIC PANEL globulin 3.5 g/dL Not Available [address], [address], 07/01/2023 15:05:47 06/30/20 23 07/01/2023 COMP. METAB OLIC PANEL A/G 1.2 ratio 0.8-2. 0 Not Available [address], [address], 07/01/2023 15:05:47 06/30/20 23 07/01/2023 COMP. METAB OLIC PANEL total bilirubin 0.50 mg/dL 0.00-1 .00 Not Available [address], [address], 07/01/2023 15:05:47 06/30/20 23 07/01/2023 COMP. METAB OLIC PANEL AST 90 U/L 0-37 high Not Available [address], [address], 07/01/2023 15:05:47 06/30/20 23 07/01/2023 COMP. METAB OLIC PANEL ALT 270 U/L 6-63 high Not Available [address], [address], 07/01/2023 15:05:47 06/30/20 23 07/01/2023 COMP. METAB OLIC PANEL alk. phos. 156 U/L 50-136 high Not Available [address], [address], 07/01/2023 15:05:47 06/30/20 23 07/01/2023 C-CHERRIE CTIVE PROTE IN-QU ANTIT ATIVE C-reactive protein -quant 28.8 mg/L 0.0-9. 0 high Not Available [address], [address], 07/01/2023 15:05:48 06/30/20 23 07/01/2023 TICK BORNE DISEA SE, ACUTE MOLEC ULAR PANEL anaplasma phagocytophi lum DNA, ql real time PCR NOT DETECT ED not detect ed normal This test was devel oped and its talat tical perfo rmanc e aleida cteri stics have been deter mined by [employer] [facility]. It has not been clear ed or appro jonathan by the FDA. This assay has been valid ated pursu ant to the CLIA regul ation s and is used for clini collin purpo ses. Not Available [facility], [place], [address], 07/01/2023 22:23:45 06/30/20 23 07/01/2023 TICK BORNE DISEA SE, ACUTE MOLEC ULAR PANEL babesia microti DNA, real time PCR NOT DETECT ED not detect ed normal This test was devel oped and its talat tical perfo rmanc e aleida cteri stics have been deter mined by [facility]. It has not been clear ed or appro jonathan by the FDA. This assay has been valid ated pursu ant to the CLIA regul ation s and is used for clini collin purpo ses. Not Available [facility] [address], [address], 07/01/2023 22:23:45 06/30/20 23 07/01/2023 TICK BORNE DISEA SE, ACUTE MOLEC ULAR PANEL borrelia miyamotoi DNA, ql real time PCR NOT DETECT ED not detect ed normal This test detec ts but does not disti nguis h betwe en B. miyam otoi and B. herms ii. This test was devel oped and its talat tical perfo rmanc e aleida cteri stics have been deter mined by [employer]. It has not been clear ed or appro jonathan by the FDA. This assay has been valid ated pursu ant to the CLIA regul ation s and is used for clini collin purpo ses. Not Available [facility] [address], [address], 07/01/2023 22:23:45 06/30/20 23 07/01/2023 TICK BORNE DISEA SE, ACUTE MOLEC ULAR PANEL ehrlichia chaffeensis DNA real time PCR NOT DETECT ED not detect ed normal This test was devel oped and its talat tical perfo rmanc e aleida cteri stics have been deter mined by [facility]. It has not been clear ed or appro jonathan by the FDA. This assay has been valid ated pursu ant to the CLIA regul ation s and is used for clini collin purpo ses. Not Available [facility] [address], [address], 07/01/2023 22:23:45 06/30/20 23 07/01/2023 TICK BORNE DISEA SE, ACUTE MOLEC ULAR PANEL borrelia species DNA, ql real time PCR DETECT ED not detect ed abnormal This test was devel oped and its talat tical perfo rmanc e aleida cteri stics have been deter mined by [facility]. It has not been clear ed or appro jonathan by the FDA. This assay has been valid ated pursu ant to the CLIA regul ation s and is used for clini collin purpo ses. For addit ional infor abeba justin refer to https ://ed ucati on.qu ruby [employer]/f aq/fa q224 (This link is being provi ded for infor liam campbell/ educa sarah l purpo ses only. ) Not Available [facility] [address], [address], 07/01/2023 22:23:45 06/30/2007/01/2023 TICK BORNE DISEA SE, ACUTE MOLEC ULAR PANEL comment The Borre yessi speci es test detec ts but does not diffe renti ate DNA from B. burgd orfer i, B. afzel ii, B. biset tii, B. herms ii, B. miyam otoi, B. nabeel sonii , and B. garni yoav. A negat anthony B. miyam otoi resul t does not exclu de infec tion as the eric ntrat ion of the organ ism in blood may be low. Clini collin corre tutu n is recom jeison d. Not Available [facility] [address], [address], 07/01/2023 22:23:45 06/30/2007/03/2023 LYME SCREE N, REFLE X TO IGG AND IGM borrelia burgdorferi IgG/IgM Ab POS negati ve abnormal <=0.9 0 - Negat anthony 0.91 - 1.09 - Equiv ocal >=1.1 0 - Posit anthony Inter preta tion: If Borre yessi VlsE1 pep C10 (IgG, IgM) Antib iván is posit anthony, the sampl e is refle xed to B. burgd orfer i IgG and B. burgd orfer i IgM. If the infec tion is recen t and the B. burgd orfer i IgM is posit anthony, then this is good evide nce to confi rm recen t infec tion. If the infec tion is more than 30 days, and B. burgd orfer i IgG resul t is posit anthony, then this is good evide nce of curre nt or past infec tion. A negat anthony B. burgd orfer i VlsE1 pepC1 0 (IgG, IgM) scree n is consi dered negat anthony for infec tion. Confi rmato ry lyme IgG and IgM testi ng added in refle x to posit anthony/e quivo collin Lyme scree n resul t. LUIS EDUARDO Not Available [address], [address], 07/03/2023 12:01:51 06/30/20 23 07/03/2023 LYME ANTIB ODIES , IGG borrelia burgdorferi, IgG Ab Neg negati ve normal Not Available [address], [address], 07/03/2023 14:45:50 06/30/20 23 07/03/2023 LYME ANTIB ODIES , IGM borrelia burgdorferi, IgM Pos negati ve abnormal Not Available [address], [address], 07/03/2023 14:45:51 08/06/20 23 08/07/2023 HEPAT IC FUNCT ION PANEL total protein 7.1 g/dL 6.4-8. 2 Not Available [address], [address], 08/07/2023 09:40:01 08/06/20 23 08/07/2023 HEPAT IC FUNCT ION PANEL albumin 4.2 g/dL 3.4-5. 0 Not Available [address], [address], 08/07/2023 09:40:01 08/06/20 23 08/07/2023 HEPAT IC FUNCT ION PANEL globulin 2.9 g/dL Not Available [address], [address], 08/07/2023 09:40:01 08/06/20 23 08/07/2023 HEPAT IC FUNCT ION PANEL A/G 1.4 ratio 0.8-2. 0 Not Available [address], [address], 08/07/2023 09:40:01 08/06/20 23 08/07/2023 HEPAT IC FUNCT ION PANEL total bilirubin 0.60 mg/dL 0.00-1 .00 Not Available [address], [address], 08/07/2023 09:40:01 08/06/20 23 08/07/2023 HEPAT IC FUNCT ION PANEL direct bilirubin 0.10 mg/dL 0.00-0 .30 Not Available [address], [address], 08/07/2023 09:40:01 08/06/20 23 08/07/2023 HEPAT IC FUNCT ION PANEL AST 25 U/L 0-37 Not Available [address], [address], 08/07/2023 09:40:01 08/06/20 23 08/07/2023 HEPAT IC FUNCT ION PANEL ALT 40 U/L 6-63 Not Available [address], [address], 08/07/2023 09:40:01 08/06/20 23 08/07/2023 HEPAT IC FUNCT ION PANEL alk. phos. 50 U/L 50-136 Not Available [address], [address], 08/07/2023 09:40:01 01/07/20 24 01/07/2024 LIPID PANEL cholesterol 229 mg/dL <200 mg/dl Hayder able 200-2 39 mg/dl Borde rline High >240 mg/dl High Not Available [address], [address], 01/07/2024 16:10:50 04/03/20 24 01/07/2024 LIPID PANEL triglyceride s 43 mg/dL <150 mg/dL Alejandra l 150-1 99 mg/dL Borde rline High 200-4 99 mg/dL High >500 mg/dL Very High Not Available [address], [address], 01/07/2024 16:10:50 01/07/20 24 01/07/2024 LIPID PANEL direct HDL 74 mg/dL <40 mg/dl - Major Risk for CHD >60 mg/dl - Negat anthony Risk for CHD Not Available [address], [address], 01/07/2024 16:10:50 01/07/20 24 01/07/2024 GLUCO SE glucose 95 mg/dL 70-100 Not Available [address], [address], 01/07/2024 16:10:51 01/07/20 24 01/07/2024 LDL - CALCU LATED LDL - calculated 146.4 RISK CATEG ORY LDL GOAL _ CHD or CHD Risk Equiv alent s <100 mg/dl (10-y ear risk >20%) 2+ Risk Facto rs <130 mg/dl (10-y ear risk <= 20%) 0-1 Risk Facto r? <160 mg/dl ? Almos t all peopl e with 0-1 risk facto r have a 10 year risk <10%, thus 10 year risk asses ment in peopl e with 0-1 risk facto r is not neces juli. Not Available [address], [address], 01/07/2024 16:10:52 06/23/20 24 06/23/2024 IMMUN OCHEM ICAL FECAL OCCUL T BLOOD ifobt NEGATI VE negati ve Not Available [address], [address], 06/23/2024 15:50:47 01/12/2001/11/2025 LIPID PANEL cholesterol 246 mg/dL <200 mg/dl Hayder able 200-2 39 mg/dl Borde rline High >240 mg/dl High Not Available [address], [address], 01/11/2025 12:45:15 01/12/20 25 01/11/2025 LIPID PANEL triglyceride s 84 mg/dL <150 mg/dL Alejandra l 150-1 99 mg/dL Borde rline High 200-4 99 mg/dL High >500 mg/dL Very High Not Available [address], [address], 01/11/2025 12:45:15 01/12/2001/11/2025 LIPID PANEL direct HDL 74 mg/dL <40 mg/dl - Major Risk for CHD >60 mg/dl - Negat anthony Risk for CHD Not Available [address], [address], 01/11/2025 12:45:15 01/12/2001/11/2025 GLUCO SE glucose 94 mg/dL 70-100 Not Available [address], [address], 01/11/2025 12:45:16 01/12/2001/11/2025 LDL - CALCU LATED LDL - calculated 155 RISK CATEG ORY LDL GOAL _ CHD or CHD Risk Equiv alent s <100 mg/dl (10-y ear risk >20%) 2+ Risk Facto rs <130 mg/dl (10-y ear risk <= 20%) 0-1 Risk Facto r? <160 mg/dl ? Almos t all peopl e with 0-1 risk facto r have a 10 year risk <10%, thus 10 year risk asses ment in peopl e with 0-1 risk facto r is not demetra bustos. Not Available [facility] [address] [facility], [place], [address], 01/11/2025 12:45:17 06/12/20 24 06/11/2024 MAMMO , scree joe, tomos ynthe sis, bilat eral MAMMO, SCREEN , EVERETTE, BILAT: 06/11/20 24. BI-RAD S: 1 CLINIC AL: 58-yea r old Female for Bilate ral Screen ing Mammog ever. Frank beaversti me risk of 7.8%. Omar raman report ed family histor y of breast cancer : mother . PRIOR EXAMS: Multip le prior studie s back throug h 2016. MAMMOG RADHA TECHNI QUE: 3D mammog radha (tomos ynthes is) and 2D mammog radha (C-vie w) images are genera niki. Images review ed with a CAD system . DENSIT Y C. The breast s are hetero geneou sly dense, which may obscur e small masses . MAMMOG RADHA FINDIN GS Bilate ral: No suspic ious mass, asymme try, microc alcifi cation , or other abnorm ality seen. CONCLU SIONNo eviden ce of malign anthony. RECOMM ENDATI ONS Bilate ralAnn ual screen ing mammog radha. ADMINI STRATI VE: A lay summar y was mailed to your patien lamine sandy the result s and recomm endati ons for follow -up. OVERAL L ASSESS MENT CATEGO RY BI-RAD S-1: Negati ve. The [employer] recomm ends annual screen ing mammog radha beginn ing at age 40 for women with averag e risk of breast cancer . ELECTR ONICAL LY SIGNED : Alfie Liriano ms, M.D. on 2023 at 10:55: 11 AM Curt Rebollar susan: Alfie Liriano ms [email or web address] [facility] (Imaging) [address], [place], [address], 06/14/2024 09:03:35 Result Notes None recorded. Problems Name Problem SNOMED Code Status Onset Date Resolution Date Notes Provider Name and Address Organization Details Recorded Time COVID-19 336244315 Active 2021 Shari Gamble NP [address] [place] [address], [address] , [facility] 2 15:48:18 Elevated blood-pres sure reading without diagnosis of hypertensi on 585416318 Active 2023 Jane parker PA-C [address] [place] [address], [address] , [facility] 4 01:39:07 Abnormal findings on diagnostic imaging of breast 456785111 Completed 01/30/2015 Jhonathan Tomlinson MD [address] [place] [address], [address] , [facility] 5 10:07:40 Lateral epicondyli tis 286994274 Completed 200606/08/2011 Not Available [facility] 3 03:06:48 Mammograph y abnormal 380394289 Completed 06/08/2011 Not Available [facility] 3 03:06:48 Bone cyst 524893528 Completed 200306/08/2011 Not Available [facility] 3 03:06:48 Menstruati on finding Completed 200706/08/2011 Not Available [facility] 3 03:06:48 Hypermetro dimas 26657621 Completed 200801/30/2015 Jhonathan Tomlinson MD [address] [place] [address], [address] , [facility] 5 10:07:40 Contact dermatitis due to plants, except food Completed 200106/08/2011 Not Available [facility] 3 03:06:48 Breast lump 73849746 Completed 200506/08/2011 Not Available [facility] 3 03:06:48 Dysfunctio nal uterine bleeding Completed 200706/08/2011 Not Available [facility] 3 03:06:48 Common cold 46834980 Completed 200506/08/2011 Not Available [facility] 3 03:06:48 Mammograph y abnormal 728657340 Completed 200506/08/2011 Not Available [facility] 3 03:06:48 Abdominal pain 51693207 Completed 200506/08/2011 Not Available [facility] 3 03:06:48 Irregular periods 42050535 Completed 200406/08/2011 Not Available [facility] 3 03:06:48 Dysmenorrh ea 863974405 Completed 200706/08/2011 Not Available [facility] 3 03:06:48 On examinatio n - a rash Completed 200106/08/2011 Not Available [facility] 3 03:06:48 Solitary cyst of breast 851167158 Completed 200501/30/2015 Jhonathan Tomlinson MD [address] [place] [address], [address] , [facility] 5 10:07:40 Fibrocysti c disease of breast 74726300 [facility] 13:01:17 Left upper quadrant pain 756743058 Completed 200506/08/2011 Not Available [facility] 3 03:06:48 Problem Notes None recorded. Procedures Surgical History Date Name Laterality Status Provider Name and Address Organization Details Recorded Time 06/13/20 23 Refraction completed Kari Dickson, LIZZ [address] [place], [address], [facility] 06/13/2023 09:24:44 12/15/19 21 Refraction completed Kari Dickson OD [address] [place], [address], [facility] 12/14/2020 09:28:27 10/12/19 21 prevention-car diovascular risk reduction counseling completed Evelia Hunt [facility] 10/12/2020 08:10:08 10/12/19 21 prevention-marcial [facility] alcohol misuse screening completed Evelia Hunt [place] [facility] 10/12/2020 08:10:08 04/13/20 18 Refraction completed Rebecca Hagen [facility] 04/13/2018 09:46:24 01/15/20 16 [facility] 15:05:11 Imaging Results Imaging Date Name Status LastModified by Organiz ation Details LastModified Time 06/11/2024 MAMMO, screening, tomosynthesis, bilateral completed [email or web address] [facility] (Imaging) [address], [place], [address], 06/14/2024 09:03:35 Procedure Notes None recorded. Medical Equipment None Reported. Allergies No known drug allergies Medications Name Sig Start Date Stop Date Status Note LastModified by Organization Details LastModified Time doxycyclin e hyclate 100 mg capsule TAKE 1 CAPSULE BY MOUTH TWICE A DAY FOR 14 DAYS 07/25 completed Not Available Not Available Not Available ibuprofen 800 mg tablet active Not Available Not Available Not Available valacyclov ir 1 gram tablet TAKE 1 TABLET BY MOUTH THREE TIMES A DAY FOR 7 DAYS 10/12 completed Not Available Not Available Not Available hydrocodon e 5 mg-acetami nophen 325 mg tablet TAKE 1 TABLET EVERY 6 HOURS NEEDED FOR PAIN (RIBS) AVOID ALCOHOL,W ORKING, DRIVING,M ACHINERY 11/06 completed Not Available Not Available Not Available prednisone 20 mg tablet TAKE 1 TABLET BY MOUTH TWICE A DAY FOR 5 DAYS active Not Available Not Available No t Available tramadol 50 mg tablet Take 1 tablet every 6 hours by oral route as needed for 10 days. 04/25 completed Not Available Not Available Not Available amoxicilli n 500 mg tablet 01/02 completed Not Available Not Available Not Available ketorolac 0.5 % eye drops 01/02 completed Not Available Not Available Not Available flaxseed oil 1,000 mg capsule 2007 active Take 1.00 caps every day Not Available Not Available Not Available amoxicilli n 875 mg tablet TAKE 1 TABLET BY MOUTH TWICE A DAY 01/02 completed Not Available Not Available Not Available naproxen sodium 550 mg tablet Take 1 tablet every 12 hours by oral route. active Not Available Not Available No t Available One-A-Day Essential tablet 2007 active Take 1.00 tabs every day Not Available Not Available Not Available naproxen 500 mg tablet TAKE 1 TABLET BY MOUTH 2 TIMES A DAY FOR 3 DAYS. THEN TWICE DAILY NEEDED FOR PAIN/INFL AMMATION 11/06 completed Not Available Not Available Not Available diazepam 5 mg tablet TAKE 1/2 TO 1 TAB Q8 PRN BACK PAIN 10/12 completed Not Available Not Available Not Available progestero ne micronized 100 mg capsule TAKE 1 CAPSULE(S ) EVERY DAY BY ORAL ROUTE FOR 90 DAYS. 2013 active Not Available Not Available Not Avai lable oxycodone 5 mg tablet TAKE ONE TABLET EVERY 6 HOURS IF NEEDED FOR SEVERE PAIN 01/02 completed Not Available Not Available Not Available Fish Oil 500 mg capsule 2007 active Take 1.00 caps every day Not Available Not Available Not Available cyclobenza artur 5 mg tablet TAKE 1 TABLET BY MOUTH TWICE A DAY NEEDED 10/12 completed Not Available Not Available Not Available estradiol 0.0375 mg/24 hr weekly transderma l patch Apply 1 patch every week by transderm al route for 90 days. active Not Available Not Available No t Available chlorhexid ine gluconate 0.12 % mouthwash 15 CC SWISH AND SPIT TWICE A DAY. START IN 24 HRS 01/02 completed Not Available Not Available Not Available calcium-D3 -mag-Zn-co ppr-kaushik-b oron 600 mg-200 unit-40 mg-7.5 mg tablet 2007 active Not Available Not Available Not Avai lable peg 3350 240 gram-elect rolytes 22.72 gram-6.72 g-5.84 g powdr for soln active Not Available Not Available Not Available Vitals Date Recorded Body height Body mass index (BMI) Body weight Provider Name and Address Organization Details Last Updated DateTime 07/10/2023 168.91 cm 25.8 kg/m2 64221.96 g Becky Fuller LPN [facility] 07/10/2023 12:28:55 Date Recorded Body height Body mass index (BMI) Body weight Respiratory rate Heart rate Oxygen saturation Oxygen saturation in Arterial blood by Pulse oximetry Body temperature Systolic blood pressure Diastolic blood pressure Provider Name and Address Organization Details Last Updated DateTime 3 168.91 cm 25.9 kg/m2 02797.5 6 g 12 /min 69 /min 98 % 98 % 98.4 [degF] 132 mm[Hg] 80 mm[Hg] Tran Teran MA [facility] 3 14:48:21 Date Recorded Body height Provider Name an d Address Organization Details Last Updated DateTime 08/06/2023 168.91 cm Gianna Fuller [facility] 08/06/2023 10:44:10 Date Recorded Body height Body mass index (BMI) Body weight Heart rate Systolic blood pressure Diastolic blood pressure Provider Name and Address Organization Details Last Updated DateTime 4 168.91 cm 28.4 kg/m2 24311.5 4 g 80 /min 156 mm[Hg] 82 mm[Hg] Estrella Resendiz [facility] 4 10:22:48 Date Recorded Systolic blood pressure Diastolic blood pressure Provider Name and Address Organization Details Last Updated DateTime 01/14/2024 158 mm[Hg] 84 mm[Hg] Rebecca Steelfrancisco j [facility] 01/14/2024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 screening 171 169837 Z13.31 depression screening tool administer ed Screening for alcohol abuse 116961325 Z13.39 Alcohol use screening tool administer ed Screening mammography 24 661522 Z12.31 Mammo ordered to have it performed this year Elevated blood-pressure reading without diagnosis of hypertension 522413457 R03.0 - Check blood pressure at home two to three times a week, in the morning before eating or drinking coffee, and bring readings to next appointmen t.- Follow DASH diet to help reduce blood pressure.- Increase physical activity, including walking and biking.- Schedule follow-up appointmen t in three months to reassess blood pressure and lifestyle changes. Health Concerns Section Related Observation LastModified by Organization Detai ls LastModified Time None Recorded Concern Status LastModified by Organization Details LastModified Time None Recorded Advance Directives Directive None Recorded Payers Encounter Date Sequence Insurance Name Policy Number Policy [place] Covered Member ID Moncada Member ID Guarantor Name 07/10/2023 1 [place] [employer] [employer] [id number] Oct Nanci [id number] Gisel Christine 07/25/2023 1 [place] [id number] Oct Nanci [id number] Gisel Christine 08/06/2023 1 [place] [id number] Oct Otisza [id number] Gisel Christine 01/14/2024 1 [place] [id number] Oct Otisza [id number] Gisel Christine 01/20/2025 1 [facility] [id number] Tc Christine [id number] Gisel Nanci Notes Date Note Type Note Provider Name and Address Organization Details Recorded Time 3 text/html Patient presents to the office to dispense custom orthotics for metatarsalgia left foot 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 Patient states he felt improvement of discomfort with cortisone injection, but continues to experience pain with longer weightbearing. Pete Gary DPM [address] [place], [phone], [facility] 07/10/2023 13:49:29 3 text/html Patient presents to the office today for joint pain. completed abx for lyme disease 2 weeks ago., felt fine. Then developed pain left shoulder. COnstant. No injury or trauma. No worse with movement. no rash, no fever. Alleve prn resolves pain Kasia Dominguez MD [address] [place] [address], [phone], [facility] 07/25/2023 15:12:15 3 text/html Patient returns to the office for evaluation custom orthotics for metatarsalgia left foot 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 Patient states she had no difficulty adapting to devices and already feels fairly significant improvement of discomfort. Pete Gary DPM [address] [place], [phone], [facility] 08/06/2023 11:18:29 4 text/html Risk Assessment AdultReported bypatient.Coronary Artery Disease Risk Assesment:Family History of Coronary Artery Disease; No personal history of diabetes; No history of peripheral vascular disease, AAA, or carotid disease; No personal history of coronary artery disease Breast Cancer Risk Assessment:Family history of breast cancer one first degree relative; No history of breast cancer or dcis Colon Cancer Risk:No personal history of colon cancer or polyps; No family history of colon polyps or cancer Lung Cancer Risk Assessment:Has used cigarettes less than 30 pack years;Former smoker quit within last 15 years; No asbestos exposure; Patient has risk for lung cancer Fracture Risk Assessment:No unexplained fracture Cognitive/Behavioral Risk Assessment:No personal history of mental illness; No family history of mental illness Safety Risk Assessment:No evidence of abuse/neglect; Do you feel safe in your current relationship?YES Diet:Counseled about the importance of maintaining a positive calcium balance and taking 1000 iu Vitamin D daily.; Discussed the value of a Mediterranean diet, and eating more fruits and vegetables Exercise counseling:Discussed the importance of daily physical activity; Discussed the importance of weight bearing exerciseRisk Assessment and Lifestyle Change Counseling 50-64Reported bypatient.Coronary Artery Disease Risk Assessment:Family History of Coronary Artery Disease; No personal history of diabetes; No history of peripheral vascular disease, AAA, or carotid disease; No personal history of coronary artery disease Breast Cancer Risk Assessment:Family history of breast cancer one first degree relative; No history of breast cancer or dcis Colon Cancer Risk Assessment:No family history of colon polyps or cancer; No history of adenomatous colon polyps Lung Cancer Risk Assessment:Never smoked;Former smoker; No asbestos exposure Fracture Risk Assessment:No unexplained fracture Cognitive/Behavioral Risk Assessment:No personal history of mental illness; No family history of mental illness Safety Risk Assessment:No evidence of abuse/neglect Diet:Counseled about eating a diet low in trans and saturated fats and high in fiber, fruits and vegetables; Discussed the value of a Mediterranean diet , and eating more fruits and vegetables Exercise counseling:Discussed the importance of daily physical activity; Discussed the importance of weight bearing exercise PHA- Would like to discuss body aches- has pain in shoulders and legs. Sx ongoing since Sep- has seen PT and had cortisone injections- these things helped slightly. Health Goals - Lose weightHCP/MOLST - None in placeHealth Concerns:1. Bilateral hand tremors 4-5 years and decreased strength over last 1-2 yearsTremors less with activityNo known triggers2. Left shoulder pain since Sep 2023 after Lyme Dx (Jun 2023) - s/p cortisone injection and PT3. Back, upper back, and bilateral leg aches subsiding with activity Diet - Meats, vegetables, fruit, carbs, dairyWater - 6 cups / dayExercise - Walking, biking, stretches, light weightsAlcohol - Special occasions onlyDrugs - NoneSmoker - Recreational / Quit 30 years agoCaffeine - Coffee 2 cups/daySexually active - Yes / Monogamous with husbandSafe - Feels safe at home Vax: Declines shingles; UTD otherwiseMammogram - Due Junolonoscopy - Due ap Smear - Last ptometry - AnnualDentist - 2x/yearHearing - No concerns Previous note:FMH osteoporosis, breast cancer in momDeclines any vax at this time. Wears a mask at work if she is not feeling well but does not protect self from students = discussed. Jane Serrano PA-C [address] [place] [address], [phone], [facility] 01/21/2024 01:40:58 5 text/html Risk Assessment AdultReported bypatient.Coronary Artery Disease Risk Assesment:Family History of Coronary Artery Disease; No personal history of diabetes; No history of peripheral vascular disease, AAA, or carotid disease; No personal history of coronary artery disease Breast Cancer Risk Assessment:Family history of breast cancer one first degree relative; No history of breast cancer or dcis Colon Cancer Risk:No personal history of colon cancer or polyps; No family history of colon polyps or cancer Lung Cancer Risk Assessment:Has used cigarettes less than 30 pack years;Former smoker quit within last 15 years; No asbestos exposure; Patient has risk for lung cancer Fracture Risk Assessment:No unexplained fracture Cognitive/Behavioral Risk Assessment:No personal history of mental illness; No family history of mental illness Safety Risk Assessment:No evidence of abuse/neglect; Do you feel safe in your current relationship?YES Diet:Counseled about the importance of maintaining a positive calcium balance and taking 1000 iu Vitamin D daily.; Discussed the value of a Mediterranean diet, and eating more fruits and vegetables Exercise counseling:Discussed the importance of daily physical activity; Discussed the importance of weight bearing exerciseRisk Assessment and Lifestyle Change Counseling 50-64Reported bypatient.Coronary Artery Disease Risk Assessment:Family History of Coronary Artery Disease; No personal history of diabetes; No history of peripheral vascular disease, AAA, or carotid disease; No personal history of coronary artery disease Breast Cancer Risk Assessment:Family history of breast cancer one first degree relative; No history of breast cancer or dcis Colon Cancer Risk Assessment:No family history of colon polyps or cancer; No history of adenomatous colon polyps Lung Cancer Risk Assessment:Never smoked;Former smoker; No asbestos exposure Fracture Risk Assessment:No unexplained fracture Cognitive/Behavioral Risk Assessment:No personal history of mental illness; No family history of mental illness Safety Risk Assessment:No evidence of abuse/neglect Diet:Counseled about eating a diet low in trans and saturated fats and high in fiber, fruits and vegetables; Discussed the value of a Mediterranean diet , and eating more fruits and vegetables Exercise counseling:Discussed the importance of daily physical activity; Discussed the importance of weight bearing exerciseSocial DeterminantsReported bypatient.Living situationno concerns Living situation...do you have problems with the following:no concerns In the past 12 months, have you worried your food would run out before you had money to buy more?no concerns Within the past 12 months, the food just didn't last and you didn't have money to get more.no concerns Has lack of transportation kept you from medical appointments, meetings, work, etc?no In the past 12 months has the [employer], gas, [employer] or water [facility] threatened to shut off services?no How hard is it for you to pay the very basics like food, house, medical care and housing?no concerns Here for annual wellnessBP elevated at visitconcerns:Would like to review her labsLast pap12/23/21- 5 yr repeatlast colonoscopy 01/05/15- due 2024last mammo 06/11/24 Gisel presents to the office for a wellness vist.[facility] care: [facility]al history- age at onset of menopause- 48 years of ageLast mammography- w/findings (next due date as well)- 06/2024- normal findings and recommendations to repeat in 2024History of abnormal pap smearsDate of the last Pap smear- Normal findings with recommendations to repeat in 5 year 12/2021- repeat in 5 years- 2026Colonoscopy- 06/2017- Mild sigmoid diverticulosis and minimal internal hemorrhoids. Recommendations for repeat in 10 years- She reports an appointment with [facility] with Dr. Almodovar- scheduled- 02/23/2025 for colonoscopy? Psychosocial history:Living situation- spouseChildren- girl- 40- 3 grand childrenDietary measures- balancedRest patterns- 6-8 hoursFrequency of exercise- bikingOccupation- [employer] diningDepression screening- 2 Family history:Breast or reproductive tract cancer: breast CA- motherFather- CVAHeart disease- fatherHTN- motherDM- noneOsteoporosis- motherThyroid problems- none Elevate BP- BP during the visit 130/80BP readings at home:SBP rang- 148- 131DBP rang- 78-94 Laboratory studies:LDL- 155HDL- 74triglycerides- 84cholesterol- 246 Vaccines:Shingles- declinedPneumoccal- declined Glenna BUSHRA Stein MA - [facility] 01/20/2025 15:50:31 OBGyn Episode No OBEpisode recorded.
[2025-02-21 13:56] VITALS: BMI 27.3
--- NOTE | 2025-02-22 10:00 | HO.ANESPROP2 ---
Documented by User: Veda Cole NP 02/22/25 10:00 HPI - Anesthesia Eval Consult details Narrative: 59yo F for Colonoscopy PMFSH Active Problems Active Problems: All Active Problems Biceps tendinitis of left shoulder (Acute) Painful arc syndrome of left shoulder (Acute) Nondisplaced fracture of left ulna styloid process, initial encounter for closed fracture (Acute) Distal radius fracture, left (Acute) Past Medical History Medical History No known health problems Family History Family history of problems with anesthesia: No Surgical History Surgical History H/O colonoscopy History of surgery on right wrist History of Problems with Anesthesia: No Social History Social History Are you a primary intensive care anaesthetist to a significant other at home: No Do you presently have visiting nurse or other home services: No Alcohol intake: current Patient Tobacco Use Status: Never used Tobacco Use of substances other than those prescribed or required for medical reasons: No Have you been hit, kicked, punched, or otherwise hurt by someone within the past year? If so, by whom?: No Are you DNR?: No Advance Directives: No Advance Directives Information Provided: Yes Patient : No Current occupational status: employed Current occupation: [employer] Allergies Allergy/AdvReac Type Severity Reaction Status Date / Time No Known Allergies Allergy Verified 12/09/23 08:16 Home Medications ?Medication ?Instructions ?Recorded ?Confirmed ?Last Taken ?Type multivitamin 1 tab PO DAILY 02/21/25 02/21/25 Unknown History Exam Height,Weight and Vital Signs: Height 5 ft 6 in Weight 76.657 kg Assessment and Plan Assessment Anesthesia Assessment: Chart Reviewed Final Anesthetic Review Family History of Problems with Anesthesia: No History of Problems with Anesthesia: No Documented by User: Chucho Flores MD 02/23/25 08:45 [facility] Past Medical History Medical History No known health problems Functional capacity: independent ambulation Patient : No Surgical History Surgical History H/O colonoscopy History of surgery on right wrist Social History Social History Are you a primary intensive care anaesthetist to a significant other at home: No Do you presently have visiting nurse or other home services: No Alcohol intake: current Patient Tobacco Use Status: Never used Tobacco Use of substances other than those prescribed or required for medical reasons: No Have you been hit, kicked, punched, or otherwise hurt by someone within the past year? If so, by whom?: No Are you DNR?: No Advance Directives: No Advance Directives Information Provided: Yes Patient : No Current occupational status: employed Current occupation: [employer] Allergies Allergy/AdvReac Type Severity Reaction Status Date / Time No Known Allergies Allergy Verified 12/09/23 08:16 Home Medications ?Medication ?Instructions ?Recorded ?Confirmed ?Last Taken ?Type multivitamin 1 tab PO DAILY 02/21/25 02/21/25 Unknown History Exam Airway Mallampati Class: II Loose/Missing/Broken Teeth: No Heart: rrr Lungs: cta Assessment and Plan Assessment Anesthesia Assessment: Anesthesia Plan Discussed Final Anesthetic Review NPO: Yes ASA Class: I and II Final Preanesthetic Review: No Changes in Pt Med Stat, Meds/Allgs Chart Reviewed, Consent Obtained/Reviewed and Anes Risks/Benef Reviewed Patient Risk: Low Anesthetic Plan Anesthetic Plan: MAC: Disposition: Standard PACU
[2025-02-23 07:55] VITALS: BMI 12.1; BMI 26.6
[2025-02-23 08:08] VITALS: BP 145/79; PULSE 65; RESP 16; TEMP 36.1; O2SAT 98
[2025-02-23] MEDS: Lactated Ringers 1,000 ML 100 ML IVCONT (08:20)
--- NOTE | 2025-02-23 09:33 | PM.OP ---
Brief Operative Note Date of Service: 02/23/25 Pre-op diagnosis: Screening Post-op diagnosis: other (Colon polyp) Procedure: Colonoscopy to the cecum with bx/removal of polyp Surgeon: Vimal Anderson MD Anesthesia: MAC Was an Soaping Machine Back Tender used for this Procedure?: No Estimated blood loss (mL): 2.0 Pathology: other (A. Cecal polyp) Condition: stable Disposition: PACU
[2025-02-23 09:35] VITALS: BP 104/73; PULSE 59; RESP 20; TEMP 36.1; O2SAT 96
[2025-02-23 09:50] VITALS: BP 138/76; PULSE 51; RESP 16; TEMP 36.1; O2SAT 98
--- NOTE | 2025-02-23 09:52 | OP_ITS ---
DATE OF SERVICE: 02/23/2025 SURGEON: Vimal Anderson MD INDICATIONS: The patient presents for evaluation of colorectal cancer screening. Full consent has been obtained from her for this, including risks of bleeding and perforation. PREOPERATIVE DIAGNOSIS: Colorectal cancer screening. POSTOPERATIVE DIAGNOSIS: PROCEDURE PERFORMED: Colonoscopy to the cecum with biopsy and removal of polyp. ESTIMATED BLOOD LOSS: COMPLICATIONS: ANESTHESIA: Medication used, monitored anesthesia care. ASSISTANTS: SPECIMENS: POSTOPERATIVE DIAGNOSES: Colorectal cancer screening, cecal polyp, diverticulosis, and internal hemorrhoids. DESCRIPTION OF PROCEDURE: The patient was placed in the left lateral decubitus position. The digital rectal exam revealed no abnormalities. The Olympus video pediatric colonoscope was entered into the rectum and advanced easily to the cecum. Once in the cecum, I did identify cecal pouch with appendiceal orifice and a normal-appearing ileocecal valve. The entire cecum and ileocecal valve were well visualized. Just outside the appendiceal orifice was a flat, approximately 3 mm polyp, which was biopsied and completely removed with a cold biopsy forceps. The remainder of the cecum appeared normal. The scope was slowly withdrawn assessing all mucosal surfaces carefully. Preparation was excellent. I did not visualize any sign of polyps, colitis, nor angiodysplasia. There was a mild amount of sigmoid diverticulosis. In the rectum, scope was retroflexed visualizing internal hemorrhoids, but no other pathology. The rectal mucosa appeared normal. The scope was straightened and withdrawn from the patient. She tolerated the procedure well, and was returned to the recovery area in stable condition. IMPRESSION: 1. Small cecal polyp. 2. Diverticulosis. 3. Internal hemorrhoids. PLAN: The results of the biopsy will be checked. If this is a tubular adenoma, I would recommend a followup coloscopy in 5 years. If it is only hyperplastic, I would recommend a followup colonoscopy in 10 years. She will otherwise see me on a p.r.n. basis. Vimal Anderson MD RMWendi/SHON / [id number]
== END 2025-02-23 11:09 | disposition home or self-care (01) ==
PROVIDERS: Visit Provider Internal Medicine
PROC: 0DJD8ZZ Inspection of Lower Intestinal Tract, Via Natural or Artificial Opening Endoscopic (ICD-10-PCS; CPT 45378; principal; 2025-02-23 08:30)
DX: Z12.11 Encounter for screening for malignant neoplasm of colon (principal); K63.5 Polyp of colon; K57.30 Diverticulosis of large intestine without perforation or abscess without bleeding; K64.8 Other hemorrhoids; Z83.719 Family history of colon polyps, unspecified; Z79.899 Other long term (current) drug therapy
CPT/HCPCS: 45380; 88305; J2003; J2704